=== PATIENT | male | born 1995 | race Native Hawaiian/Other Pacific Islander ===

== ENCOUNTER 2016-07-09 16:33 | Observation (INO) | payer OTHER ==
[~2016-07-09] VITALS: Ht 177.8 cm; Wt 77.2 kg
[~2016-07-09 16:33] MED LIST: CIPR500T4 PO; KETO10 PO; PERC5TAB12 PO; TAMS0.4C67 PO; ZOFR4TAB3 SL
[2016-07-09 16:34] VITALS: BP 142/90; PULSE 76; RESP 20; TEMP 98.5; O2SAT 99
[2016-07-09] MEDS ORDERED: SODIUM CHLOR 0.9% 1000 ML INJ 1,000 ML IV SCH ×2 (18:05→19:39)
[2016-07-09] MEDS ORDERED: FAMOTIDINE 20 MG/2 ML VIAL IV PUSH ONE (18:15)
[2016-07-09] MEDS ORDERED: KETOROLAC TROMETHAMINE 30 MG/ML (IVP) VIAL IVP ONE (18:15)
[2016-07-09] MEDS ORDERED: ONDANSETRON HCL 4 MG/2 ML VIAL IVP ONE (18:15)
[2016-07-09] MEDS ORDERED: LOSA50TA PO (18:24)
--- NOTE | 2016-07-09 18:27 | RADRPT ---
EXAM DATE/TIME: 07/09/2016 18:11 [place] COMPARISON: No previous studies available for comparison. INDICATIONS : Fever MEDICAL HISTORY : None. SURGICAL HISTORY : None. ENCOUNTER: Initial ACUITY: 1 day PAIN SCORE: 0/10 LOCATION: Bilateral chest FINDINGS: A single view of the chest demonstrates the lungs to be symmetrically aerated without evidence of mas s, infiltrate or effusion. The cardiomediastinal contours are unremarkable. Osseous structures are intact. CONCLUSION: No evidence of acute cardiopulmonary disease. Mike Miller MD on July 09, 2016 at 18:25 Board Certified Radiologist. This report was verified electronically.
[2016-07-09 18:51] LABS: BASOPHIL # 0.1 TH/MM3 (0-0.2); BASOPHIL % 0.4 % (0.0-2.0); EOSINOPHIL # 0.1 TH/MM3 (0-0.4); EOSINOPHIL % 0.6 % (0.0-4.0); HEMATOCRIT 46.6 % (39.0-51.0); LYMPH % 24.4 % (9.0-44.0); MEAN CELL VOLUME 86.5 FL (80.0-100.0); MEAN CORPUSCULAR HEMOGLOBIN 30.4 PG (27.0-34.0); MEAN CORPUSCULAR HGB CONC 35.1 % (32.0-36.0); MONO % 9.6 % (0.0-8.0); PLATELET COUNT 259 TH/MM3 (150-450); RED BLOOD COUNT 5.39 MIL/MM3 (4.50-5.90); WHITE BLOOD COUNT 12.2 TH/MM3 (4.0-11.0)
[2016-07-09 18:55] LABS: HEMO FLAGS DIFF FINAL
--- NOTE | 2016-07-09 19:26 | PD ---
HPI Chief Complaint: GI Complaint Time Seen by Provider: 19:23 Travel History International Travel<30 days: No Contact w/Intl Traveler<30days: No Traveled to known affect area: No History of Present Illness HPI 20-year-old male that presents to the ED for evaluation of headache, nausea and vomited for the past 2 days. Per patient he has fevers as well. Body aches as well. Per patient is not able to keep much down secondary to nausea and vomiting. He denies any abdominal pain. No diarrhea. No urinary or bowel movement issues. No cough or runny nose. Per patient he did initially had a sore throat but that went away on its own 2 days before the symptoms started. He denies any recent travel. He denies any new foods or new medications. Patient does have a history of hypertension and takes medications for this. Per patient his been taking some Aleve with some relief of the fever and his been able to keep down jose nuria as well as Gatorade but not been able to keep down anything else. Per patient he has not needed anything for 2 days. No other sick contacts. No neck pain. No back pain. PFSH Past Medical History Cardiovascular Problems: Yes (HTN) Diminished Hearing: No Genitourinary: Yes (kidney stone) Hypertension: Yes Kidney Stones: Yes Integumentary: Yes (PSOARIASIS) Tetanus Vaccination: > 5 Years Influenza Vaccination: Yes Past Surgical History Surgical History: No Previous Surgery Social History Alcohol Use: No Tobacco Use: No Substance Use: No Allergies-Medications (Allergen,Severity, Reaction): Coded Allergies: No Known Allergies (Unverified , 07/09/16) Reported Meds & Prescriptions Reported Meds & Active Scripts Active Ranitidine (Ranitidine HCl) 150 Mg Tab 150 Mg PO BID PRN Zofran (Ondansetron HCl) 4 Mg Tab 4 Mg PO Q6HR PRN Reported Losartan (Losartan Potassium) 50 Mg Tab 50 Mg PO DAILY Review of Systems Except as stated in HPI: all other systems reviewed are Neg Physical Exam Narrative GENERAL: Well-nourished, well-developed patient in no apparent distress. SKIN: Warm and dry. HEAD: Atraumatic. Normocephalic. EYES: Pupils equal and round reactive to light and accommodation. No scleral icterus. No injection or drainage. ENT: No nasal bleeding or discharge. Mucous membranes pink and moist. TMs are clear with no sign of infection or perforation. No mastoid tenderness. Ear canals are intact bilaterally. No lymphadenopathy. Nostril mucosa is red and moist with clear mucus noted. No sinus tenderness to palpation noted. Tonsils are not enlarged or swollen. No ulvua Deviation. Tongue is midline. NECK: Trachea midline. No JVD. No meningeal signs noted CARDIOVASCULAR: Regular rate and rhythm. RESPIRATORY: No accessory muscle use. Clear to auscultation. Breath sounds equal bilaterally. GASTROINTESTINAL: Abdomen soft, non-tender with no guarding, nondistended. Hepatic and splenic margins not palpable. MUSCULOSKELETAL: Extremities without clubbing, cyanosis, or edema. No obvious deformities. Full range of motion of the upper and lower extremities bilaterally. Pupils pulses bilaterally. NEUROLOGICAL: Awake and alert. No obvious cranial nerve deficits. Motor grossly within normal limits. Five out of 5 muscle strength in the arms and legs. Normal speech. PSYCHIATRIC: Appropriate mood and affect; insight and judgment normal. Data Data Last Documented VS Vital Signs Date Time Temp Pulse Resp B/P Pulse Ox O2 Delivery O2 Flow Rate FiO2 07/09/16 20:47 20 07/09/16 19:33 66 116/73 96 07/09/16 16:34 98.5 Room Air Orders Complete Blood Count With Diff (07/09/16 18:05) Comprehensive Metabolic Panel (07/09/16 18:05) Lipase (07/09/16 18:05) Lactic Acid (07/09/16 18:05) Urinalysis - C+S If Indicated (07/09/16 18:05) Iv Access Insert/Monitor (07/09/16 18:05) Ondansetron Inj (Zofran Inj) (07/09/16 18:15) Sodium Chlor 0.9% 1000 Ml Inj (Ns 1000 M (07/09/16 18:05) Famotidine Inj (Pepcid Inj) (07/09/16 18:15) Ketorolac Inj (Toradol Inj) (07/09/16 18:15) Influenzae A/B Antigen (07/09/16 18:07) Chest, Single Ap (07/09/16 ) Sodium Chlor 0.9% 1000 Ml Inj (Ns 1000 M (07/09/16 19:39) Lactic Acid (07/09/16 20:14) Labs Laboratory Tests Test 07/09/16 07/09/16 07/09/16 07/09/16 18:14 18:20 20:00 20:05 Lactic Acid Level 3.0 mmol/L 2.9 mmol/L White Blood Count 12.2 TH/MM3 Red Blood Count 5.39 MIL/MM3 Hemoglobin 16.4 GM/DL Hematocrit 46.6 % Mean Corpuscular Volume 86.5 FL Mean Corpuscular Hemoglobin 30.4 PG Mean Corpuscular Hemoglobin 35.1 % Concent Red Cell Distribution Width 13.0 % Platelet Count 259 TH/MM3 Mean Platelet Volume 9.5 FL Neutrophils (%) (Auto) 65.0 % Lymphocytes (%) (Auto) 24.4 % Monocytes (%) (Auto) 9.6 % Eosinophils (%) (Auto) 0.6 % Basophils (%) (Auto) 0.4 % Neutrophils # (Auto) 8.0 TH/MM3 Lymphocytes # (Auto) 3.0 TH/MM3 Monocytes # (Auto) 1.2 TH/MM3 Eosinophils # (Auto) 0.1 TH/MM3 Basophils # (Auto) 0.1 TH/MM3 CBC Comment DIFF FINAL Differential Comment Sodium Level 136 MEQ/L Potassium Level 4.1 MEQ/L Chloride Level 98 MEQ/L Carbon Dioxide Level 29.3 MEQ/L Anion Gap 9 MEQ/L Blood Urea Nitrogen 7 MG/DL Creatinine 1.22 MG/DL Estimat Glomerular Filtration 74 ML/MIN Rate Random Glucose 104 MG/DL Calcium Level 9.8 MG/DL Total Bilirubin 0.6 MG/DL Aspartate Amino Transf 38 U/L (AST/SGOT) Alanine Aminotransferase 93 U/L (ALT/SGPT) Alkaline Phosphatase 94 U/L Total Protein 8.5 GM/DL Albumin 4.4 GM/DL Lipase 166 U/L Urine Color LIGHT-YELLOW Urine Turbidity CLEAR Urine pH 7.5 Urine Specific [place] 1.003 Urine Protein NEG mg/dL Urine Glucose (UA) NEG mg/dL Urine Ketones NEG mg/dL Urine Occult Blood NEG Urine Nitrite NEG Urine Bilirubin NEG Urine Urobilinogen LESS THAN 2.0 MG/DL Urine Leukocyte Esterase NEG Urine RBC LESS THAN 1 /hpf Urine WBC LESS THAN 1 /hpf Microscopic Urinalysis Comment CULT NOT INDICATED MDM Medical Decision Making Medical Screen Exam Complete: Yes Emergency Medical Condition: Yes Medical Record Reviewed: Yes Interpretation(s) CBC & BMP Diagram 07/09/16 18:20 LFTs slightly elevated. Lipase within normal limits. Lactic acid of 3 Flu test negative. Last Impressions Chest X-Ray 07/09/16 0000 Signed Impressions: Service Date/Time: Saturday, July 09, 2016 18:11 - CONCLUSION: No evidence of acute cardiopulmonary disease. Mike Miller MD Differential Diagnosis Gastritis versus gastroenteritis versus nausea and vomiting versus viral illness versus pneumonia Narrative Course 20-year-old male that presents to the ED for evaluation of fever, nausea and vomiting. Patient was properly examined and was found to have signs and symptoms consistent appears to be likely viral illness. Labs and imaging ordered. Patient was given IV fluids as well as antiemetics and pain medication. Labs and imaging showed elevated lactic acid, slightly elevated WBC count and elevated LFTs. Likely secondary to the vomiting. Case was discussed in my attending Dr. Bravo who was made aware of all findings and physical findings and agrees to this is likely secondary to nausea and vomiting. He recommends second lactic after bolus of fluid and is this is trending down patient can be safely discharged home with prescriptions for antiemetics. He agrees to this is likely viral. Second lactate acid still 2.9. Case was discussed with Dr. Borden who agrees to obs admission. Patient agrees with this plan. Patient was admitted for IV hydration and intractable vomiting. Diagnosis Primary Impression: Nausea & vomiting Qualified Code: R11.2 - Non-intractable vomiting with nausea, unspecified vomiting type Additional Impressions: Lactic acid acidosis Gastroenteritis Admitting Information Admitting Physician Requests: Observation Scripts Ranitidine 150 Mg [id number] Mg PO BID PRN (HEARTBURN) #20 TAB Ref 0 Prov:Beck Bravo MD 07/09/16 Ondansetron (Zofran)4 Mg Tab4 Mg PO Q6HR PRN (NAUSEA OR VOMITING) #20 TAB Prov:Beck Bravo MD 07/09/16 Rahul Copeland July 09, 2016 19:26
[2016-07-09 19:33] VITALS: BP 116/73; PULSE 66; RESP 20; O2SAT 96
[2016-07-09 19:34] LABS: ALKALINE PHOSPHATASE 94 U/L (45-117); ALT (GPT) 93 U/L (12-78); ANION GAP 9 MEQ/L (5-15); AST (GOT) 38 U/L (15-37); BICARBONATE 29.3 MEQ/L (21.0-32.0); BLOOD UREA NITROGEN 7 MG/DL (7-18); CHLORIDE 98 MEQ/L (98-107); GLOMERULAR FILTRATION RATE 74 ML/MIN (>89); POTASSIUM 4.1 MEQ/L (3.5-5.1); SODIUM (NA) 136 MEQ/L (136-145); TOTAL BILIRUBIN ADULT 0.6 MG/DL (0.2-1.0)
[2016-07-09] MEDS ORDERED: RANI150T PO (20:28)
[2016-07-09] MEDS ORDERED: ZOFR4TAB PO (20:28)
[2016-07-09 20:47] LABS: BLOOD, URINE NEG (NEG); COMMENT (UR) CULT NOT INDICATED; CULTURE IF INDICATED CULT NOT INDICATED; GLUCOSE,URINE NEG (NEG); KETONE, URINE NEG (NEG); NITRITE,URINE NEG (NEG); PH, URINE 7.5 (5.0-8.5); URINE COLOR LIGHT-YELLOW (YELLW/STRAW)
--- NOTE | 2016-07-09 21:14 | HHI.HP ---
[facility] Service [facility] Primary Care Physician Unknown Admission Diagnosis nausea and vomiting, lactic acidosis Diagnoses: (1) Gastroenteritis Diagnosis: Principal (2) Intractable nausea and vomiting Diagnosis: Principal (3) Lactic acid acidosis Diagnosis: Principal Travel History International Travel<30 Days: No Contact w/Intl Traveler <30 Da: No Traveled to Known Affected Are: No History of Present Illness This is a 20-year-old male with a PMH of HTN and Psoriasis who presented to the ER with complaints of generalized fatigue, nausea and vomiting x2 days. Notes subjective fevers and chills, but no diarrhea or sick contacts. On arrival, BP 142/90, HR 76, O2 sat 99% on RA, Afebrile. WBC 12.2. GFR 74. Lactic Acid 3.0. LFTs mildly elevated. S/p IVF w/ repeat Lactic Acid 2.9. UA negative. CXR with no acute findings. S/p Pepcid, Toradol and Morphine in ER w/ some improvement. Review of Systems Except as stated in HPI: all other systems reviewed are Neg ROS: 14 point review of systems otherwise negative. Past Family Social History Past Medical History PMH: HTN and Psoriasis Past Surgical History PAST SURGICAL HISTORY: None Allergies: Coded Allergies: No Known Allergies (Unverified , 07/09/16) Family History PAST FAMILY HISTORY: Reviewed. No h/o DM or CAD Social History PAST SOCIAL HISTORY: Negative for alcohol, tobacco or drugs. Physical Exam Vital Signs Vital Signs Date Time Temp Pulse Resp B/P Pulse Ox O2 Delivery O2 Flow Rate FiO2 07/09/16 20:47 20 07/09/16 19:33 66 20 116/73 96 07/09/16 18:03 17 07/09/16 16:34 98.5 76 20 142/90 99 Room Air Physical Exam PE: GENERAL: Young male in mild distress secondary to pain and nausea/vomiting. HEENT: PERRLA, EOMI. No scleral icterus or conjunctival pallor. No lid lag or facial droop. CARDIOVASCULAR: Regular rate and rhythm. No obvious murmurs to auscultation. No chest tenderness to palpation. RESPIRATORY: No obvious rhonchi or wheezing. Clear to auscultation. Breath sounds equal bilaterally. GASTROINTESTINAL: Abdomen soft, non-tender, nondistended. BS normal. MUSCULOSKELETAL: Extremities without clubbing, cyanosis, or edema. No obvious deformities. NEUROLOGICAL: Awake, alert and oriented x4. No focal neurologic deficits. Moving both upper and lower extremities spontaneously. Laboratory Laboratory Tests Test 07/09/16 07/09/16 07/09/16 07/09/16 18:14 18:20 20:00 20:05 Lactic Acid Level 3.0 2.9 White Blood Count 12.2 Red Blood Count 5.39 Hemoglobin 16.4 Hematocrit 46.6 Mean Corpuscular Volume 86.5 Mean Corpuscular Hemoglobin 30.4 Mean Corpuscular Hemoglobin 35.1 Concent Red Cell Distribution Width 13.0 Platelet Count 259 Mean Platelet Volume 9.5 Neutrophils (%) (Auto) 65.0 Lymphocytes (%) (Auto) 24.4 Monocytes (%) (Auto) 9.6 Eosinophils (%) (Auto) 0.6 Basophils (%) (Auto) 0.4 Neutrophils # (Auto) 8.0 Lymphocytes # (Auto) 3.0 Monocytes # (Auto) 1.2 Eosinophils # (Auto) 0.1 Basophils # (Auto) 0.1 CBC Comment DIFF FINAL Differential Comment Sodium Level 136 Potassium Level 4.1 Chloride Level 98 Carbon Dioxide Level 29.3 Anion Gap 9 Blood Urea Nitrogen 7 Creatinine 1.22 Estimat Glomerular Filtration 74 Rate Random Glucose 104 Calcium Level 9.8 Total Bilirubin 0.6 Aspartate Amino Transf 38 (AST/SGOT) Alanine Aminotransferase 93 (ALT/SGPT) Alkaline Phosphatase 94 Total Protein 8.5 Albumin 4.4 Lipase 166 Urine Color LIGHT-YELLOW Urine Turbidity CLEAR Urine pH 7.5 Urine Specific [place] 1.003 Urine Protein NEG Urine Glucose (UA) NEG Urine Ketones NEG Urine Occult Blood NEG Urine Nitrite NEG Urine Bilirubin NEG Urine Urobilinogen LESS THAN 2.0 Urine Leukocyte Esterase NEG Urine RBC LESS THAN 1 Urine WBC LESS THAN 1 Microscopic Urinalysis Comment CULT NOT INDICATED Date/Time Procedure Status Source Growth 07/09/16 18:20 Influenza Types A,B Antigen ([facility]) - Final Complete Nasal Washing NEGATIVE FOR FLU A AND B ANTIGEN.... Result Diagram: 07/09/16181907/09/161819 Assessment and Plan Problem List: (1) Intractable nausea and vomiting ICD Code: R11.2 Status: Acute (2) Gastroenteritis ICD Code: K52.9 Status: Acute (3) Lactic acid acidosis ICD Code: E87.2 Status: Acute Assessment and Plan A/P: 1. Gastroenteritis: acute onset of abdominal pain, nausea/vomiting x2 days. Afebrile, however mild leukocytosis. In light of persistent symptoms, will start on empiric treatment w/ Cipro/Flagyl, IVF, Protonix IV, analgesics/ antiemetics as needed. 2. Intractable N/V: secondary to above. Analgesics/antiemetics as needed, IVF for hydration. 3. Lactic Acidosis: Lactate 3.0, s/p 2L IVF in ER w/ repeat Lactate 2.9, likely due to dehydration from intractable nausea/vomiting, no signs of sepsis. Continue w/ IVF, check repeat Lactate in am. 4. DVT Prophylaxis: SCD/Teds. 5. Social work for d/c planning as needed. 6. Case discussed w/ ER physician at length. Jennifer Borden MD July 09, 2016 21:14
[2016-07-09] MEDS ORDERED: BISACODYL 10 MG SUPP RECTAL PRN (21:15)
[2016-07-09] MEDS ORDERED: SODIUM CHLORIDE 0.9% FLUSH 10 ML FLUSH IV FLUSH PRN (21:15)
[2016-07-09] MEDS ORDERED: ONDANSETRON HCL 4 MG/2 ML VIAL IVP PRN (21:15)
[2016-07-09] MEDS ORDERED: MORPHINE SULFATE 4 MG/ML INJ IV PRN (21:15)
[2016-07-09] MEDS ORDERED: ACETAMINOPHEN/HYDROcodone 325 MG/5 MG TAB PO PRN (21:15)
[2016-07-09] MEDS: CIPROFLOXACIN 400 MG PREMIX 200 ML IV SCH (22:00)
[2016-07-09] MEDS: SODIUM CHLOR 0.9% 1000 ML INJ 1,000 ML IV SCH (22:50)
[2016-07-09] MEDS: metroNIDAZOLE 500 MG INJ 100 ML IV SCH (22:50)
[2016-07-09] MEDS: ACETAMINOPHEN 325 MG TAB PO PRN (23:09)
[2016-07-10] VITALS: BP 116/71; PULSE 64; RESP 20; TEMP 99.9; O2SAT 98
[2016-07-10 04:00] VITALS: BP 128/70; PULSE 66; RESP 20; TEMP 99.5; O2SAT 98
[2016-07-10] MEDS: SODIUM CHLOR 0.9% 1000 ML INJ 1,000 ML IV SCH ×2 (05:07→12:10)
[2016-07-10] MEDS: metroNIDAZOLE 500 MG INJ 100 ML IV SCH (05:10)
[2016-07-10 05:14] LABS: AUTOMATED NEUTROPHIL # 4.6 TH/MM3 (1.8-7.7); BASOPHIL # 0.1 TH/MM3 (0-0.2); BASOPHIL % 0.6 % (0.0-2.0); EOSINOPHIL % 0.3 % (0.0-4.0); HEMATOCRIT 43.7 % (39.0-51.0); HEMO FLAGS DIFF FINAL; LYMPH % 44.8 % (9.0-44.0); LYMPHOCYTE # 4.6 TH/MM3 (1.0-4.8); MEAN CELL VOLUME 88.3 FL (80.0-100.0); MEAN CORPUSCULAR HEMOGLOBIN 29.6 PG (27.0-34.0); MEAN CORPUSCULAR HGB CONC 33.5 % (32.0-36.0); MONO % 8.6 % (0.0-8.0); NEUT % 45.7 % (16.0-70.0); PLATELET COUNT 242 TH/MM3 (150-450); RED BLOOD COUNT 4.94 MIL/MM3 (4.50-5.90); RED CELL DISTRIBUTION WIDTH 13.2 % (11.6-17.2); WHITE BLOOD COUNT 10.2 TH/MM3 (4.0-11.0)
[2016-07-10 05:43] LABS: ALKALINE PHOSPHATASE 76 U/L (45-117); ALT (GPT) 63 U/L (12-78); ANION GAP 7 MEQ/L (5-15); AST (GOT) 17 U/L (15-37); BICARBONATE 28.2 MEQ/L (21.0-32.0); BLOOD UREA NITROGEN 5 MG/DL (7-18); CHLORIDE 107 MEQ/L (98-107); GLOMERULAR FILTRATION RATE 92 ML/MIN (>89); POTASSIUM 3.8 MEQ/L (3.5-5.1); SODIUM (NA) 142 MEQ/L (136-145); TOTAL BILIRUBIN ADULT 0.6 MG/DL (0.2-1.0)
[2016-07-10] MEDS ORDERED: PANTOPRAZOLE SODIUM 40 MG VIAL IV PUSH SCH (09:00)
[2016-07-10] MEDS ORDERED: SODIUM CHLORIDE 0.9% FLUSH 10 ML FLUSH IV FLUSH SCH (09:00)
[2016-07-10] MEDS: CIPROFLOXACIN 400 MG PREMIX 200 ML IV SCH (10:19)
[2016-07-10 11:05] VITALS: BP 132/73; PULSE 64; RESP 18; TEMP 98.9; O2SAT 100
[2016-07-10] MEDS ORDERED: CIPR-9 PO (13:10)
[2016-07-10] MEDS ORDERED: ZOFR4TAB3 SL (13:10)
--- NOTE | 2016-07-10 13:11 | HHI.DCPOC ---
Discharge Care Plan Diagnosis: (1) Intractable nausea and vomiting (2) Gastroenteritis Goals to Promote Your Health * To prevent worsening of your condition and complications * To maintain your health at the optimal level Directions to Meet Your Goals Take your medications as prescribed Follow your dietary instruction Follow activity as directed Keep your appointments as scheduled Take your immunizations and boosters as scheduled If your symptoms worsen call your PCP, if no PCP go to Urgent Care Center or Emergency Room Smoking is Dangerous to Your Health. Avoid second hand smoke Call the 24-hour hour crisis hotline for domestic abuse at Cristina Wong PA-C July 10, 2016 1:11 pm
--- NOTE | 2016-07-10 13:18 | HHI.PR ---
Subjective Remarks Follow up for gastroenteritis. The patient reports feeling much better today. Denies any further episodes of vomiting overnight or today. He did get nauseous earlier this morning but then was able to tolerate breakfast and the nausea resolved. Denies any abdominal pain or diarrhea. Denies fevers/chills. He feels ready for discharge. Objective Vitals Vital Signs Date Time Temp Pulse Resp B/P Pulse Ox O2 Delivery O2 Flow Rate FiO2 07/10/16 11:05 98.9 64 18 132/73 100 07/10/16 04:00 99.5 66 20 128/70 98 07/10/16 00:00 99.9 64 20 116/71 98 07/09/16 20:47 20 07/09/16 19:33 66 20 116/73 96 07/09/16 18:03 17 07/09/16 16:34 98.5 76 20 142/90 99 Room Air I/O 07/09/16 07/09/16 07/09/16 07/10/16 07/10/16 07/10/16 07:00 15:00 23:00 07:00 15:00 23:00 Intake Total 480 ml Balance 480 ml Intake Oral 480 ml # Voids 2 # Bowel Movements 0 Result Diagram: 07/10/16 0454 07/10/16 0454 Imaging Last Impressions Chest X-Ray 07/09/16 0000 Signed Impressions: Service Date/Time: Saturday, July 09, 2016 18:11 - CONCLUSION: No evidence of acute cardiopulmonary disease. Mike Miller MD Objective Remarks GENERAL: Well-nourished, well-developed young male patient in [facility]. SKIN: Warm and dry. No rash. HEENT: Normocephalic. Atraumatic. Pupils equal and round. Mucous membranes pink and moist. NECK: Supple. Trachea midline. CARDIOVASCULAR: Regular rate and rhythm. S1, S2 noted. No murmur appreciated. RESPIRATORY: No accessory muscle use. Clear to auscultation. Breath sounds equal bilaterally. GASTROINTESTINAL: Abdomen soft, non-tender, nondistended. Normoactive bowel sounds x4. MUSCULOSKELETAL: No obvious deformities. Extremities without clubbing, cyanosis , or edema. NEUROLOGICAL: Awake and alert. No obvious cranial nerve deficits. Motor grossly within normal limits. Normal speech. Medications and IVs Current Medications Medications (Trade) Dose Ordered Sig/Jacob Route Start Time Stop Time Status Last Admin (NS 1000 ml Inj) 1,000 ml @ 150 mls/hr Q6H40M IV 07/09/16 22:00 07/10/16 12:10 (NS Flush) 2 ml UNSCH PRN IV FLUSH 07/09/16 21:15 (NS Flush) 2 ml BID IV FLUSH 07/10/16 09:00 07/10/16 10:09 (Zofran Inj) 4 mg Q6H PRN IVP 07/09/16 21:15 07/09/16 23:09 (Dulcolax Supp) 10 mg DAILY PRN RECTAL 07/09/16 21:15 (Tylenol) 650 mg Q6H PRN PO 07/09/16 21:15 07/09/16 23:09 ([place] 5-325 Mg) 1 tab Q4H PRN PO 07/09/16 21:15 Morphine Sulfate 2 mg 2 mg Q3H PRN IV 07/09/16 21:15 Ciprofloxacin/ Dextrose 200 ml @ 200 mls/hr Q12H IV 07/09/16 22:00 07/10/16 10:19 (Flagyl 500 Mg Inj) 100 ml @ 100 mls/hr Q8H IV 07/09/16 22:00 07/10/16 05:10 (Protonix Inj) 40 mg Q12H IV PUSH 07/10/16 09:00 07/10/16 10:09 A/P Problem List: (1) Intractable nausea and vomiting ICD Code: R11.2 Status: Acute (2) Gastroenteritis ICD Code: K52.9 Status: Acute (3) Lactic acid acidosis ICD Code: E87.2 Status: Acute Assessment and Plan 20-year-old male with a PMH of HTN and Psoriasis who presented to the ER with complaints of generalized fatigue, nausea and vomiting x2 days. Acute Gastroenteritis with intractable N/V: acute onset of abdominal pain, nausea/vomiting x2 days. Afebrile, however mild leukocytosis. In light of persistent symptoms, started on empiric treatment with IV Cipro/Flagyl. Given IVF, Protonix IV, analgesics/antiemetics as needed. Advanced diet to regular. Patient tolerated well, symptoms resolved. Lactic Acidosis: Lactate 3.0, s/p 2L IVF in ER w/ repeat Lactate 2.9, likely due to dehydration and reactive from intractable nausea/vomiting, no signs of sepsis. Continued w/ IVF, repeat lactate 1.7. Resolved. Leukocytosis: WBC 12.2. Suspect secondary to gastroenteritis as above. Given abx , IVF. Repeat CBC with WBC 10K, leukocytosis resolved. DVT Prophylaxis: SCD/Teds. Discharge Planning Discharge patient to home Condition on discharge: Improved Regular Diet as tolerated Ad Henrietta activity Rx written: Zofran 4mg SL q6h prn nausea, Cipro 500mg bid x5days Follow-up with primary care physician within 1 week Cristina Wong PA-C July 10, 2016 1:18 pm
[2016-07-10] MEDS: ACETAMINOPHEN 325 MG TAB PO PRN (14:30)
== END 2016-07-10 16:35 | disposition home or self-care (01) ==
LOC: NEPD 16:33 → INTOOBSV 21:07 → NEDA 21:07 → NEPGCP 22:35
PROVIDERS: ADMIT Internal Medicine; ATTEND Internal Medicine
DX: E87.2 Acidosis (principal); K52.9 Noninfective gastroenteritis and colitis, unspecified; I10 Essential (primary) hypertension; L40.9 Psoriasis, unspecified
CPT/HCPCS: 71010; 80053; 81001; 83605; 83690; 85025; 87804; 96361; 96374; 96375; 99285; C9113; G0378; J0744; J1885; J2405; J7030